=== PATIENT | male | born 1970 | race Caucasian/White ===

== ENCOUNTER → 2019-08-23 10:31 | Outpatient (CLI) | payer BC, SELFPAY ==
--- NOTE | ~2019-08-23 | US_ITS ---
EXAMINATION: US scrotum doppler DATE: 08/23/2019 11:16 INDICATION: Palpable left testicular lesion TECHNIQUE: Testicular sonogram utilizing grayscale and Doppler COMPARISON: None. FINDINGS: The right testis measures 4.3 x 2.5 x 2.6 cm. The left testis measures 3.5 x 2.6 x 2.7 cm. Relatively well-defined 5 x 4 x 5 mm likely solid hypoechoic nodule at the periphery of the left testis with no evident internal vascularity on color Doppler but no posterior acoustic enhancement to suggest a cys tic lesion. Otherwise symmetric normal grayscale appearance to both testes. There is normal vascular flow to both testes. The right epididymis is normal with normal vascular flow. The left epididymis is normal with normal vascular flow. Mild left varicocele. No hydrocele. IMPRESSION: 1. Indeterminate relatively well-defined 5 mm nodular peripheral hypoechoic region in the left testi s which is concerning for neoplasm including primary malignancy such as seminoma or nonseminomatous t erm cell tumor and lymphoma. Differential would also include nonneoplastic lesions including focal in farction, hematoma, epidermoid cyst and infection including granulomatous disease. Recommend urologic consultation and consider obtaining serum tumor markers. Reviewed, dictated and finalized at location A. OR LITIGATION PARALEGAL IMPRESSION: 1. Indeterminate relatively well-defined 5 mm nodular peripheral hypoechoic re gion in the left testis which is concerning for neoplasm including primary rosa gnancy such as seminoma or nonseminomatous term cell tumor and lymphoma. Differ ential would also include nonneoplastic lesions including focal infarction, hem atoma, epidermoid cyst and infection including granulomatous disease. Recommend urologic consultation and consider obtaining serum tumor markers.
== END ==
PROVIDERS: Visit Provider Physician Assistant
DX: N50.89 Other specified disorders of the male genital organs (principal)
CPT/HCPCS: 76870; 93976